=== PATIENT | male | born 1980 | race Caucasian/White ===

== ENCOUNTER 2017-08-22 00:44 | Emergency (ER) | payer BC ==
[2017-08-22 00:45] VITALS: BP 142/82; PULSE 85; RESP 15; TEMP 97.9; O2SAT 99
--- NOTE | 2017-08-22 01:12 | PD ---
HPI Chief Complaint: Injury Time Seen by Provider: 01:04 Travel History International Travel<30 days: No Contact w/Intl Traveler<30days: No Traveled to known affect area: No History of Present Illness HPI 37-year-old male presents to the urgency department for evaluation a left foot pain. Patient states he tripped over a branch around 3:00 today. States his foot rolled. He is concerned it may be broken. Pain is a constant, throbbing, 8 out of 10. Denies alterations in sensation. Range of motion is limited due to pain. He has no other symptoms to report. PFSH Past Medical History Medical other: Yes (SPINAL MENEGITIS) Social History Alcohol Use: No Tobacco Use: Yes Allergies-Medications (Allergen,Severity, Reaction): Coded Allergies: cat dander (Verified Allergy, Unknown, 08/22/17) shellfish derived (Verified Allergy, Unknown, 08/22/17) Reported Meds & Prescriptions Reported Meds & Active Scripts Active Lortab (Hydrocodone-Acetaminophen) 5-325 Mg Tab 1 Tab PO Q6H PRN Ibuprofen 800 Mg Tab 800 Mg PO Q8H PRN Review of Systems Except as stated in HPI: all other systems reviewed are Neg Physical Exam Narrative GENERAL: Well-nourished, well-developed patient in no acute distress SKIN: Focused skin assessment warm/dry. HEAD: Normocephalic. EYES: No scleral icterus. No injection or drainage. NECK: Supple, trachea midline. No JVD or lymphadenopathy. CARDIOVASCULAR: Regular rate and rhythm without murmurs, gallops, or rubs. RESPIRATORY: Breath sounds equal bilaterally. No accessory muscle use. GASTROINTESTINAL: Abdomen soft, non-tender, nondistended. MUSCULOSKELETAL: No cyanosis. Very mild edema to the dorsal aspect of the left foot. There is tenderness to palpation over the medial and lateral aspects of the distal left foot. No obvious deformity. Cap refill within normal limits. Distal pulses are palpable. She does have a deformity of the left ankle, however this is chronic for him. BACK: Nontender without obvious deformity. No CVA tenderness. Data Data Last Documented VS Vital Signs Date Time Temp Pulse Resp B/P (MAP) Pulse Ox O2 Delivery O2 Flow Rate FiO2 08/22/17 03:20 08/22/17 00:45 97.9 85 15 99 Room Air Orders Orders Foot, Complete (Pmt0thb) (08/22/17 ) Ibuprofen (Motrin) (08/22/17 01:15) Splint Or Brace Apply/Monitor (08/22/17 02:28) Crutches (08/22/17 ) Shoe Cast (08/22/17 ) MDM Medical Decision Making Medical Screen Exam Complete: Yes Emergency Medical Condition: Yes Medical Record Reviewed: Yes Differential Diagnosis Fracture versus sprain versus dislocation versus contusion Narrative Course 37-year-old male presents to the emergency department for evaluation left foot pain. Patient appears without distress. His vital signs are stable. He has no obvious deformity in the affected extremity is neurovascularly intact. Last Impressions Foot X-Ray 08/22/17 0000 Signed Impressions: Service Date/Time: August 01:28 - CONCLUSION: Avulsion fracture involving the base of the proximal phalanx of the great toe along its medial aspect with intra-articular extension. Ez Mcnally Jr., MD Abrasion is placed in a postop shoe. He is counseled on care. 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 He agrees to return immediately with any acute worsening of symptoms. Diagnosis Primary Impression: Sprain of left foot Qualified Codes: S93.602A - Unspecified sprain of left foot, initial encounter Additional Impression: Fracture of left great toe Qualified Codes: S92.415A - Nondisplaced fracture of proximal phalanx of left great toe, initial encounter for closed fracture Referrals: Ambulance Officer Primary Care Physician Patient Instructions: General Instructions, Toe Fracture (ED) Additional Instructions: Ice and elevate to reduce pain and swelling Postop shoe for support Follow-up with podiatry Return immediately with any acute worsening of symptoms Med/Other Pt SpecificInfo: Prescription(s) given Scripts Hydrocodone-Acetaminophen (Lortab) 5-325 Mg Tab 1 TAB PO Q6H Y for PAIN GREATER THAN 5, #12 TAB 0 Refills Prov: Jenny Robins 08/22/17 Ibuprofen (Ibuprofen) 800 Mg Tab 800 MG PO Q8H Y for PAIN SCALE 1 TO 10, #30 TAB 0 Refills Prov: Jenny Robins 08/22/17 Disposition: 01 DISCHARGE HOME Condition: Stable Jenny Robins Aug 22, 2017 01:12
[2017-08-22] MEDS ORDERED: IBUPROFEN 800 MG TAB PO ONE (01:15)
--- NOTE | 2017-08-22 01:57 | RADRPT ---
EXAM DATE/TIME: 08/22/2017 01:28 [facility] COMPARISON: No previous studies available for comparison. INDICATIONS : Left foot pain after heavy object fell on foot. MEDICAL HISTORY : None. SURGICAL HISTORY : None. ENCOUNTER: Initial ACUITY: 1 day PAIN SCORE: 4/10 LOCATION: Left foot. FINDINGS: 3 views of the left foot reveal acute avulsion fracture involving the medial base of the proximal pha lanx of the great toe. There is intra-articular extension. Minimal separation of the fracture fragmen ts. Remaining bony structures are unremarkable. Spurring of the calcaneus. CONCLUSION: Avulsion fracture involving the base of the proximal phalanx of the great toe along its medial aspect with intra-articular extension. Ez Mcnally Jr., MD on August 22, 2017 at 1:55 Board Certified Radiologist. This report was verified electronically.
[2017-08-22] MEDS ORDERED: IBUP800T23 PO (02:30)
[2017-08-22] MEDS ORDERED: HYDR-3533 PO (02:30)
== END 2017-08-22 03:21 | disposition home or self-care (01) ==
LOC: NEPD 00:44
DX: S93.602A Unspecified sprain of left foot, initial encounter (principal); S92.415A Nondisplaced fracture of proximal phalanx of left great toe, initial encounter for closed fracture; W01.0XXA Fall on same level from slipping, tripping and stumbling without subsequent striking against object, initial encounter
CPT/HCPCS: 73630; 99283; E0113; L3260